=== PATIENT | female | born 1955 ===

== ENCOUNTER → 2018-12-15 19:45 | Outpatient (REF) | payer MEDICARE, MEDICAID, SELFPAY ==
[2018-12-15 20:03] LABS: BUN Creatinine Ratio 26.9 (6-22); Blood Urea Nitrogen 35 mg/dL (7-17); Calcium 9.8 mg/dL (8.4-10.2); Carbon Dioxide 26 mmol/L (22-32); Chloride 99 mmol/L (98-107); Estimated Glomerular Filt Rate 41.1 mL/min (>60); Glucose 263 mg/dL (80-110); HEMOLYSIS < 15 (0-50); Potassium 4.3 mmol/L (3.4-5.1); Sodium 138 mmol/L (137-145)
[2018-12-15 20:15] LABS: Hemoglobin A1C% w Est Avg Glu 7.5 % (4.0-6.0)
[2018-12-15 20:40] LABS: Creatinine Urine Random 258.6 mg/dL; Protein (Total) Urine Random 8 mg/dL (0-12); Protein Creatinine Ratio Urine 0.03 GRAM/24H
[2018-12-20 14:08] LABS: Parathyroid Hormone Int 43 pg/mL (14-64)
== END ==
LOC: LAB 19:45
PROVIDERS: Visit Provider Physician Assistant Medical
DX: N25.81 Secondary hyperparathyroidism of renal origin (principal); D64.9 Anemia, unspecified; N05.9 Unspecified nephritic syndrome with unspecified morphologic changes; R80.9 Proteinuria, unspecified
CPT/HCPCS: 36415; 80048; 82570; 83036; 83970; 84156